=== PATIENT | male | born 1945 | race American Indian/Alaskan Native ===

== ENCOUNTER 2019-08-14 16:14 | Emergency (ER) | payer MEDICARE ==
[2019-08-14] MEDS ORDERED: MORPHINE 4 MG/1 ML INJ IV ONE (16:48)
--- NOTE | 2019-08-14 17:05 | Emergency Department Report ---
HPI - General Chief Complaint: Abdominal Pain Time Seen by Provider: 08/14/19 16:37 - HPI HPI: 74-year-old -[place] male presents to the emergency department by EMS from [place] (PCP) with complaint of a 1-2 day history of abdominal pain that radiates down into the right side of his pelvis/groin. He denies any problems with bowel or bladder. The PCP thought that maybe he was having a kidney stone but he denies any history of kidney stones. He did not take anything, nor was given anything, for his symptoms prior to arrival today. He has a past medical history of acid reflux, low blood pressure and previous hernia. ED Past Medical Hx - Past Medical History Hx Hypertension: No (Hypotension) Additional medical history: STV - Surgical History Past Surgical History?: Yes Additional Surgical History: R arm - Social History Smoking Status: Never Smoker Substance Use Type: None - Medications Home Medications: Home Medications Medication Instructions Recorded Confirmed Last Taken Type Metoprolol [Lopressor] 12.5 mg PO BID #30 tablet 09/10/14 Unknown Rx ED Review of Systems ROS: Stated complaint: ABDOMINAL PAIN Other details as noted in HPI Comment: All other systems reviewed and negative Constitutional: denies: chills, fever Eyes: denies: eye pain, eye discharge ENT: denies: ear pain, throat pain Respiratory: denies: cough, shortness of breath Cardiovascular: denies: chest pain, palpitations Gastrointestinal: abdominal pain. denies: nausea, vomiting Genitourinary: other (groin pain). denies: dysuria, testicular pain Musculoskeletal: denies: back pain, arthralgia Skin: denies: rash, lesions Neurological: denies: headache, weakness Physical Exam - Physical Exam Vital Signs: Vital Signs 08/14/19 08/14/19 16:32 16:47 Temperature 98.0 F Pulse Rate 64 68 Respiratory 14 16 Rate Blood Pressure 164/88 Blood Pressure 147/88 [Left] O2 Sat by Pulse 99 99 Oximetry Physical Exam: GENERAL: The patient is well-developed well-nourished. HEENT: Normocephalic. Atraumatic. Patient has moist mucous membranes. EYES: Extraocular motions are intact. NECK: Supple. Trachea is midline. CHEST/LUNGS: Clear to auscultation. There is no respiratory distress noted. HEART/CARDIOVASCULAR: Regular. There is no tachycardia. There is no murmur. ABDOMEN: Abdomen is soft. Mild lower abdominal tenderness to palpation. No guarding. Patient has normal bowel sounds. There is no abdominal distention. SKIN:Skin is warm and dry. . NEURO: The patient is awake, alert, and cooperative. The patient has no focal neurologic deficits. Normal speech. MUSCULOSKELETAL: There is no tenderness or deformity. There is no evidence of acute injury. : There is a large right inguinal hernia going into the scrotum. The area is soft and appears reducible but it is difficult to completely reduce this hernia secondary to its size. ED Course Vital Signs 08/14/19 08/14/19 16:32 16:47 Temperature 98.0 F Pulse Rate 64 68 Respiratory 14 16 Rate Blood Pressure 164/88 Blood Pressure 147/88 [Left] O2 Sat by Pulse 99 99 Oximetry - Consultations Consultation #1: 08/14/19 20:27 I spoke to the general surgeon on-call, Dr. Diop, regarding the patient's right inguinal hernia. She says that it most likely represents a chronic hernia since the patient has improvement in his discomfort, does not have any signs of bowel obstruction such as nausea and vomiting, has normal labs, and based on both the CT results and my description of his physical examination. Therefore she feels the patient is safe for discharge home at this time with close outpatient follow-up. ED Medical Decision Making - Lab Data Result diagrams: 08/14/19 17:09 08/14/19 17:09 - Radiology Data Radiology results: report reviewed CT OF THE ABDOMEN AND PELVIS WITH INTRAVENOUS CONTRAST INDICATION / CLINICAL INFORMATION: Abdominal and pelvic pain. TECHNIQUE: The patient received 100 cc Omnipaque [address] scans at this location are performed using CT dose reduction for ALARA by means of automated exposure control. COMPARISON: None available. FINDINGS: ABDOMEN: The liver, spleen, gallbladder, bile ducts, pancreas, adrenal glands and kidneys are normal. No adenopathy is seen. There is no evidence of bowel obstruction, wall thickening or free air. The visualized lung bases are clear. PELVIS: There is a large right inguinal hernia which contains multiple small bowel loops. There is mild small bowel feces. No significant bowel dilatation or wall thickening are seen. A portion of the appendix may be in the hernia sac. The colon does not appear to be in the hernia. There is minimal associated edema involving the peritoneal fat without free fluid in the hernia sac. The urinary bladder is mildly compressed by the hernia. The prostate gland is mildly enlarged. The distal ureters are normal. There are scattered left colonic diverticula without diverticulitis. Mild spondylosis is present. IMPRESSION: Large right inguinal hernia containing multiple small bowel loops. There is slight edema of the peritoneal fat. Mild small bowel feces could be indicative of low- grade or chronic obstruction. Signer Name: Amrit Neal MD - Medical Decision Making This patient presents with the complaint of some abdominal pain going down into his groin that started today. He has a long-standing history of a right inguinal hernia. The area is soft and appears reducible but it is difficult to reduce the entire thing secondary to its size. His labs have been unremarkable putting CBC, metabolic panel. CT scan of the abdomen and pelvis with IV contrast shows a large right inguinal hernia with some small bowel contents but no signs of obvious obstruction, incarceration or strangulation. General surgery was contacted and recommends discharge with outpatient follow-up. I spoke with the patient in great detail regarding signs or symptoms of concern regarding hernia and when he needs to come back to the emergency department. - Differential Diagnosis inguinal hernia, appendicitis, colitis, diverticulitis, bowel obstruction Critical Care Time: No Critical care attestation.: If time is entered above; I have spent that time in minutes in the direct care of this critically ill patient, excluding procedure time. ED Disposition Clinical Impression: Inguinal hernia Qualifiers: Obstruction and gangrene presence: without obstruction or gangrene Laterality: unilateral Recurrence: not specified as recurrent Qualified Code(s): K40.90 - Unilateral inguinal hernia, without obstruction or gangrene, not specified as recurrent Abdominal pain Qualifiers: Abdominal location: lower abdomen, unspecified Qualified Code(s): R10.30 - Lower abdominal pain, unspecified Disposition: DC-01 TO HOME OR SELFCARE Is pt being admited?: No Condition: Stable Instructions: Inguinal Hernia (ED) Additional Instructions: Please follow up with a general surgeon in the next few days regarding your inguinal hernia. I have given you a referral for a local general surgeon, Dr. Diop. Please return to the emergency Department with any worsening of your symptoms including increased groin or abdominal pain, development of nausea and vomiting, or with any acute distress. Referrals: NELL DIOP DO [Staff Physician] - 2-3 Days PRIMARY CARE, [Primary Care Provider] - 2-3 Days Time of Disposition: 20:26
[2019-08-14 17:28] LABS: Basophils % (Auto) 0.3 % (0.0-1.8); Eosinophils % (Auto) 0.4 % (0.0-4.3); Hematocrit 43.6 % (35.5-45.6); Hemoglobin 14.4 gm/dl (11.8-15.2); Lymphocytes # (Auto) 0.7 K/mm3 (1.2-5.4); Mean Corpuscular HGB Conc 33 % (32-34); Mean Corpuscular Volume 90 fl (84-94); Monocytes # (Auto) 0.5 K/mm3 (0.0-0.8); Monocytes % (Auto) 6.6 % (0.0-7.3); Platelet Count 163 K/mm3 (140-440); Red Blood Count 4.87 M/mm3 (3.65-5.03); Red Cell Distribution Width 13.5 % (13.2-15.2)
[2019-08-14 17:53] LABS: Alanine Aminotransferase 17 units/L (7-56); Albumin 4.3 g/dL (3.9-5); BUN/Creatinine Ratio 19; Bilirubin,Direct 0.2 mg/dL (0-0.2); Blood Urea Nitrogen 15 mg/dL (9-20); Calcium 9.5 mg/dL (8.4-10.2); Hemolysis Index 2
[2019-08-14 20:00] LABS: Bilirubin,Urine NEG (Negative); Color,Urine Yellow (Yellow)
[2019-08-14 20:01] LABS: Blood,Urine NEG (Negative); Mucus,Urine FEW /HPF; Protein,Urine <15 mg/dL mg/dL (Negative); Urobilinogen,Urine < 2.0 mg/dL (<2.0)
--- NOTE | 2019-08-14 20:06 | Cat Scan Report ---
CT OF THE ABDOMEN AND PELVIS WITH INTRAVENOUS CONTRAST INDICATION / CLINICAL INFORMATION: Abdominal and pelvic pain. TECHNIQUE: The patient received 100 cc Omnipaque [address] scans at this location are performed using CT dose reduction for ALARA by means of automated exposure control. COMPARISON: None available. FINDINGS: ABDOMEN: The liver, spleen, gallbladder, bile ducts, pancreas, adrenal glands and kidneys are normal. No adenopathy is seen. There is no evidence of bowel obstruction, wall thickening or free air. The v isualized lung bases are clear. PELVIS: There is a large right inguinal hernia which contains multiple small bowel loops. There is mi ld small bowel feces. No significant bowel dilatation or wall thickening are seen. A portion of the a ppendix may be in the hernia sac. The colon does not appear to be in the hernia. There is minimal ass ociated edema involving the peritoneal fat without free fluid in the hernia sac. The urinary bladder is mildly compressed by the hernia. The prostate gland is mildly enlarged. The di stal ureters are normal. There are scattered left colonic diverticula without diverticulitis. Mild sp ondylosis is present. IMPRESSION: Large right inguinal hernia containing multiple small bowel loops. There is slight edema of the peritoneal fat. Mild small bowel feces could be indicative of low-grade or chronic obstruction . Signer Name: Amrit Neal MD Signed: 08/14/2019 8:02 PM Workstation Name: [id number]
[2019-08-14 20:36] VITALS: BP 137/75
== END 2019-08-14 21:00 | disposition home or self-care (01) ==
LOC: ED 16:14
DX: K40.90 Unilateral inguinal hernia, without obstruction or gangrene, not specified as recurrent (principal)
CPT/HCPCS: 36415; 74177; 80048; 80076; 81001; 83690; 85025; 96374; 99284; J2270; Q9967